=== PATIENT | female | born 1940 | race Caucasian/White ===

== ENCOUNTER 2016-10-26 15:16 | Emergency (ER) | payer OTHER ==
[~2016-10-26] VITALS: Ht 154.9 cm; Wt 67.9 kg
[~2016-10-26 15:16] MED LIST: ALL180; ASPEC81; CLON1TAB3; LANS30CA12 PO; LRT5; SNG10
[2016-10-26 15:22] VITALS: Ht 154.9 cm; Wt 67.9 kg
[2016-10-26] MEDS ORDERED: RANITIDINE HCL 50 MG/100 ML D5W IV STA (15:37)
[2016-10-26] MEDS ORDERED: DiphenhydrAMINE HCL 50 MG/ML VIAL IV STA (15:37)
[2016-10-26] MEDS ORDERED: METHYLPREDNISOLONE 125 MG VIAL IV STA (15:37)
--- NOTE | 2016-10-26 15:37 | EMERGENCY ROOM VISIT NOTE ---
History Report prepared by Jamel: Yumi Griffith Under the Supervision of: Dr. Sidney Jose M.D. First contact with patient: 15:27 Chief Complaint: ALLERGIC REACTION Stated Complaint: ALLERGIC REACTION TO SHELLFISH Nursing Triage Summary: triage note: pt reports "we got an appetizer at [employer] and told them i had an reaction and they said they would not dillard in in the same fryer as the shellfish but then i ate it and knew right away." pt denies difficulty swallowing. pt reports "my face stings and i am having some short of breath i am starting to get some tunnel vision." pt displays facial swelling and reddness." pt reports taking 1 tablet benedryl. History of Present Illness The patient is a 76 year old female who presents to the Emergency Room with complaints of a sudden allergic reaction beginning 30 minutes prior to arrival. 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 The patient's face began to get red and hot, and stated that her head and eyes felt fuzzy. The patient also had trouble breathing, but denies having chest pain. She denies having nausea, vomiting, and abdominal pain. The patient reports taking 25 mg of Benadryl prior to arrival, and states that she thinks the Benadryl helped. She reports having incidents like this 3 prior times, and that she has an EpiPen but has never used it before. The patient has a history of a slight stroke, but no history of heart problems. Source of History: patient Onset: 30 minutes prior to arrival Position: other (global) Quality: other (allergic reaction) Timing: other (sudden) Associated Symptoms: + SOB, No chest pain, No nausea, No vomiting, No abdominal pain Review of Systems See HPI for pertinent positives & negatives. A total of 10 systems reviewed and were otherwise negative. Past Medical & Surgical Medical Problems: (1) Asthma (2) Bronchitis (3) Pneumonia Old medical records were reviewed. Nurse's notes were reviewed and I agree with. Family History FH: ALS (amyotrophic lateral sclerosis) FHx: cancer Social History Smoking Status: Never Smoker Alcohol Use: none Drug Use: none Current/Historical Medications Scheduled Alprazolam (Xanax), 0.25 MG PO DAILY Aspirin (Aspirin Ec), 81 MG PO DAILY Brinzolamide-Brimonidine Tartr (Simbrinza), 1 DROP OPB BID Cholecalciferol (Vitamin D3), 1,000 UNITS PO DAILY Cholecalciferol (Vitamin D3), 2,000 UNITS PO DAILY Diphenhydramine Hcl (Benadryl Allergy), 25 MG PO DAILY Fexofenadine Hcl (Delisa Allergy), 180 MG PO DAILY Lansoprazole (Prevacid), 30 MG PO DAILY Lifitegrast (Xiidra), 1 DROP OPB BID Montelukast Sodium (Singulair), 10 MG PO DAILY Pravastatin Sodium (Pravastatin Sodium), 10 MG PO DAILY Sertraline (Zoloft), 25 MG PO DAILY Travoprost (Travatan Z), 1 DROPS OPB HS Allergies Coded Allergies: Sulfamethoxazole w/Trimethoprim (Unverified Allergy, Intermediate, RASH, ) Cephalosporins (Unverified Allergy, Mild, 10/26/16) Clarithromycin (Unverified Allergy, Mild, 10/26/16) Iodine (Unverified Allergy, Mild, 10/26/16) Nitrates, Organic (Unverified Allergy, Mild, 10/26/16) Nitrofurantoin (Unverified Allergy, Mild, 10/26/16) Quinolones (Unverified Allergy, Mild, 10/26/16) Tetracycline (Unverified Allergy, Mild, 10/26/16) Uncoded Allergies: SEAFOOD (Allergy, Mild, 09/26/05) Physical Exam Vital Signs Date Time Temp Pulse Resp B/P (MAP) Pulse Ox O2 Delivery O2 Flow Rate FiO2 10/26/16 18:55 36.7 63 18 151/72 97 10/26/16 16:44 70 18 135/78 98 Room Air 10/26/16 15:22 36.7 67 20 136/75 98 Room Air 10/26/16 15:20 98 Room Air Physical Exam General: Well developed well nourished non ill older female in no acute distress , breathing comfortably on room air. Normal speech HEENT: Normal cephalic atraumatic. Minimal redness and swelling of the face. No swelling to mouth, lips, or tongue. Pupils are equal round and reactive to light. Extraocular movements are intact. Oropharynx is pink with moist mucous membranes. Posterior oropharynx is wide open without swelling. No swelling of the mouth lips or tongue. Neck: Supple with a midline trachea. No meningeal signs or stiffness, no JVD or bruits. No Stridor. Chest: Clear to auscultation bilaterally. No wheezes or rhonchi. No increased work of breathing. Heart: regular rate and rhythm. Abdomen: Soft nontender, nondistended without rebound guarding or rigidity. Extremities: No cyanosis clubbing or edema. No calf tenderness or assymetry Spine/Back. Non tender to palpation. No CVA tenderness Skin: Good turgor without rashes.No hives. Neurologic exam: Cranial nerves two through 12 are intact. Motor and sensation are intact and symmetrical throughout. Medical Decision & Procedures Medications Administered Medications (Trade) Dose Ordered Sig/Aimee Route Start Time Stop Time Status Last Admin Dose Admin Diphenhydramine HCl (Benadryl Inj) 25 mg NOW STAT IV 10/26/16 15:37 10/26/16 15:39 DC 10/26/16 15:54 25 MG Methylprednisolone Sodium Succinate (Solu-Medrol IV) 125 mg NOW STAT IV 10/26/16 15:37 10/26/16 15:39 DC 10/26/16 15:54 125 MG Ranitidine HCl (zANTac IV) 50 mg NOW STAT IV 10/26/16 15:37 10/26/16 15:39 DC 10/26/16 15:54 50 MG ED Course 1525: Past medical records reviewed. The patient was evaluated in room C8, and a complete history and physical examination were performed. 1537: Ordered Ranitidine HCl 50 mg IV, Methylprednisolone Sodium Succinate 125 mg IV, Benadryl Inj 25 mg IV. 1615: The patient reports feeling better. 1840: Upon reevaluation, the patient is resting comfortably. I discussed the results and treatment plan with her. She verbalized agreement of the treatment plan. The patient was discharged home. Medical Decision Differentials include, but are not limited to; allergic reaction and anaphylaxis. This patient comes in as described above. She has a history of allergies to seafood and she got appetizers that was contaminated with shrimp oil. She took a Benadryl and started to feel a lot better. She said she has some mild redness swelling in her face. She has an EpiPen but is never used it she says that Benadryl usually helps her . She appears comfortable she has no evidence of airway compromise or hives or GI symptoms. At this point, I do not think she needs epinephrine. Certainly at age 76, there could be a downside with epi injection as well. Particularly with her feeling better, I think is prudent to give her the additional IV Benadryl, IV Solu-Medrol, IV Zantac and observe her. Daughter agrees. Her daughter is at the bedside and driving. She was observed and rechecked multiple times while she was in the ER and she improved and was asymptomatic with exception of being mildly tired from the Benadryl. Her swelling resolves and she had no progression of her symptoms. At no point did she have any GI symptoms hives shortness of breath or oropharyngeal swelling. She feels comfortable and would like to go home. I told her she can use Benadryl every 6-8 hours if needed. I also encouraged her to carry Benadryl and EpiPen with her given her history and I told her to ensure that she is extremely careful about what she eats particularly restaurants. I encouraged follow-up with her doctor this week. She was happy with plan and she will be discharged to home. Medication Reconcilliation Current Medication List: was personally reviewed by me Blood Pressure Screening Patient's blood pressure: Normal blood pressure Impression Primary Impression: Allergic reaction Scribe Attestation The scribe's documentation has been prepared under my direction and personally reviewed by me in its entirety. I confirm that the note above accurately reflects all work, treatment, procedures, and medical decision making performed by me. Departure Information Dispostion Home / Self-Care Referrals No Doctor, Assigned (PCP) Forms HOME CARE DOCUMENTATION FORM, IMPORTANT VISIT INFORMATION Patient Instructions My [facility] Additional Instructions Rest.. Return if: Worsening of symptoms, shortness of breath, fever or chills, facial swelling, sore throat, any new problems or concerns May use Benadryl 25 mg every 6 hours as needed Benadryl may make you drowsy - do not take before drinking, driving, working Follow-up with your doctor on Friday
[2016-10-26] MEDS ORDERED: FEXO1TAB49 PO (15:58)
[2016-10-26] MEDS ORDERED: ASPI81TA28 PO (15:58)
[2016-10-26] MEDS ORDERED: MONT1TAB3 PO (15:58)
[2016-10-26] MEDS ORDERED: PRAV10TA39 PO (15:58)
[2016-10-26] MEDS ORDERED: CHOL20007 PO (16:02)
[2016-10-26] MEDS ORDERED: CHOL1000 PO (16:02)
[2016-10-26] MEDS ORDERED: TRAV0.00 OPB (16:05)
[2016-10-26] MEDS ORDERED: SERT25TA PO (16:05)
[2016-10-26] MEDS ORDERED: LIFI5DRO OPB (16:05)
[2016-10-26] MEDS ORDERED: BRIN3SUS OPB (16:05)
[2016-10-26] MEDS ORDERED: ALPR0.25 PO (16:05)
[2016-10-26] MEDS ORDERED: DIPH1TAB PO (16:09)
[2016-10-26 18:55] VITALS: BP 151/72; PULSE 63; TEMP 36.7; O2SAT 97
== END 2016-10-26 18:45 | disposition home or self-care (01) ==
LOC: C.EDB 15:17 → C.EDC 18:45
DX: T78.1XXA Other adverse food reactions, not elsewhere classified, initial encounter (principal); X58.XXXA Exposure to other specified factors, initial encounter; R06.02 Shortness of breath; J45.909 Unspecified asthma, uncomplicated; Z86.73 Personal history of transient ischemic attack (TIA), and cerebral infarction without residual deficits; G12.21 Amyotrophic lateral sclerosis; Z79.82 Long term (current) use of aspirin